=== PATIENT | female | born 1960 | race Caucasian/White ===

== ENCOUNTER 2020-01-17 09:38 | Outpatient (CLI) | payer OTHER, SELFPAY ==
[2020-01-19 14:14] LABS: Coronavirus Lab Test PTC Positive
== END 2020-01-17 09:39 | disposition home or self-care (01) ==
PROVIDERS: PCP Family Medicine; Visit Provider Family Medicine
DX: Z01.818 Encounter for other preprocedural examination (principal)
CPT/HCPCS: 87635

== ENCOUNTER 2020-01-23 22:09 | Inpatient (IN) | payer OTHER, SELFPAY ==
[2020-01-23 22:10] VITALS: BP 157/110; PULSE 75; RESP 26; TEMP 36.8; O2SAT 96; BMI 43.0
--- NOTE | 2020-01-23 22:18 | ECG_ITS ---
[facility] Test Date: 2020-01-23 Pat Name: Izzy Gonzalez Department: Room: Gender: Female Sponsorship Manager: : 1960 Requested By: Patria Kimbrough Order Number: [id number] Kimberly MD: Halley Lombardi M.D. Measurements Intervals [place] Rate: 75 P: 25 WV: 140 QRS: -15 QRSD: 110 T: 35 QT: 407 QTc: 457 Interpretive Statements SINUS RHYTHM WITH MARKED SINUS ARRHYTHMIA VOLTAGE CRITERIA FOR LVH [MEETS CRITERIA IN ONE OF: R(aVL), S(V1), R(V5), R(V5/V6)+S(V1)] NONSPECIFIC T-WAVE ABNORMALITY No previous ECG available for comparison Electronically Signed On 01-24-2020 17:57:05 CDT by Halley Lombardi M.D. [id number] f
--- NOTE | 2020-01-23 22:18 | XRR_ITS ---
PROCEDURE INFORMATION: Exam: XR Chest, 1 View Exam date and time: 01/23/2020 11:17 PM Age: 59 years old Clinical indication: Cough and shortness of breath; Patient HX: Covid, SOB, cough, cp TECHNIQUE: Imaging protocol: XR of the chest Views: 1 view. COMPARISON: No relevant prior studies available. FINDINGS: Lungs: Shallow inspiration with crowding. Patchy ground-glass opacities in the left lung base and mid lung. The right lung is clear. Pleural space: Unremarkable. No pleural effusion. No pneumothorax. Heart/Mediastinum: The heart size is upper normal. Bones/joints: Unremarkable. XR/XR chest 1V portable [id number] IMPRESSION: Ground-glass opacities in the left lung could represent pneumonia versus asymmetric pulmonary edema.
--- NOTE | 2020-01-23 22:35 | ED_ITS ---
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 Sunday morning she developed sore throat and cough and then a fever over 102. She had a COVID test done and the result was back on Sunday showing that she was positive for COVID infection. She is continued to run fevers since then. She is had body aches, cough, nausea, weakness. She had a home pulse ox and noted that her pulse oxes were in the 70s today. She does not have any history of lung disease or diabetes. She is not a smoker. She does have a history of hypertension and obesity. She called EMS tonight to bring her in because of her low sats and shortness of breath. On 4 L of oxygen she is 95%. On room air she was 87%. MD elicited complaint: shortness of breath and cough Onset (ago): day(s) (7) Severity: moderate Exacerbating factors: exertion Relieving factors: oxygen Associated symptoms: Reports cough, fever(s), myalgias and nausea; Deny chest pain Treatment prior to arrival: oxygen Review of Systems General: Reports: 10 or more systems reviewed and unremarkable except in HPI and below Const: Reports: fever(s) Eyes: Denies: change in vision ENMT: Denies: odynophagia Card: Denies: chest pain or swelling of feet/ankles Resp: Reports: dyspnea and non-productive cough; Denies: productive cough GI: Reports: nausea : Denies: flank pain or difficulty voiding Musc: Denies: neck pain or back pain Skin/Breast: Denies: rash Neuro: Denies: headache(s), numbness in extremities or weakness in extremities Vicente/Lymph: Denies: easy bruising or easy bleeding PFSH ED PFSH: Medical History (Updated 01/24/20 @ 11:54 by Noni Lorenzo MD) Anxiety Chronic back pain Hypertension Obesity Surgical History (Updated 01/24/20 @ 00:18 by Trevor Albarran MD) History of section Family History (Updated 01/24/20 @ 00:18 by Trevor Albarran MD) Father Oral cancer Mother Diabetes Other CAD (coronary artery disease) Social History (Updated 01/24/20 @ 00:19 by Trevor Albarran MD) Smoking and tobacco status: never smoked Alcohol intake: current Alcohol intake frequency: few times a week Substance/Drug Use: never Physical Exam Const: COMMON NORMALS: no acute distress, patient oriented x3, no limitations and alert GENERAL APPEARANCE: cooperative and comfortable HENMT: HEAD & SCALP: normal to inspection FACE & SINUS: normal facial exam Eye: GENERAL EYE: appearance normal, both eyes and all related structures Neck/C-Spine: COMMON NORMALS: supple, no meningeal signs and no JVD Chest: COMMONS NORMALS: normal inspection of the chest Resp: EFFORT & INSPECTION: Yes tachypneic, Yes labored and Yes uses accessory muscles AUSCULTATION: crackles Laterality: bilateral Cardio: COMMON NORMALS: no JVD, regular rate, regular rhythm and No murmurs present (Cardio) RATE: regular rate RHYTHM: regular rhythm GI: COMMON NORMALS: Normal to inspection, nondistended, normoactive bowel sounds present, Soft to palpation and non-tender INSPECTION: Yes normal to inspection AUSCULTATION: Yes normoactive bowel sounds PALPATION: Yes Soft to palpation Back/Pelvis: COMMON NORMALS: thoracic and lumbar spine normal to inspection Extremity: COMMON NORMALS: normal to inspection Neuro: COMMON NORMALS: patient oriented x3, moves all extremities, no focal motor deficits and no sensory deficits noted SENSORIUM/ORIENTATION: Yes alert MENINGEAL SIGNS: Yes no meningeal signs Psych: COMMON NORMALS: mental status grossly normal, cooperative and normal affect Skin: COMMON NORMALS: no rashes or lesions noted and turgor normal GENERAL SKIN EXAM: no rashes or lesions noted and turgor normal Course ED course: 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 She is hypoxic on room air and will be admitted to the viral ICU for further care including Decadron, Lovenox, remdesivir. Vital Signs: Vital signs: Vital Signs Temperature 98.0 F 01/25/20 08:00 Pulse Rate 65 01/25/20 10:00 Respiratory Rate 18 01/25/20 10:00 Blood Pressure 119/65 01/25/20 10:00 Pulse Oximetry 91 01/25/20 10:00 MDM - SOB/Dyspnea Lab Data: Labs: Lab Results 01/23/20 01/23/2020 Range/Units 22:40 22:40 22:40 WBC 1.5 L (4.0-10.0) 10^3/ uL RBC 4.91 (4.1-5.3) 10^6/u L Hgb 15.0 (11.5-15.3) g/dL Hct 44.9 (37.0-47.0) % MCV 91.4 (81-99) fL MCH 30.5 (28.0-34.0) pg MCHC 33.4 (30.0-36.0) g/dL RDW 12.8 (12.1-15.1) % Plt Count 269 (130-400) 10^3/c mm MPV 10.6 H (7.4-10.4) fL Neut % (Auto) 63.4 % Lymph % (Auto) 28.1 % Terrell % (Auto) 7.8 % Eos % (Auto) 0.0 % Baso % (Auto) 0.7 % Neut # (Auto) 0.97 L* (1.8-7.7) 10^3/u L Lymph # (Auto) 0.4 L (0.8-4.8) 10^3/u L Terrell # (Auto) 0.1 L (0.2-0.9) 10^3/u L Eos # (Auto) 0.0 (0.0-0.8) 10^3/u L Baso # (Auto) 0.0 (0.0-0.1) 10^3/u L Nucleated RBC % (a uto) 0 % Nucleated RBCs # 0.0 /100WBC PT 13.70 (12.1-14.9) SECO NDS INR 1.02 (0.8-1.2) Fibrinogen 656 H (174-498) mg/dL D-Dimer 0.96 H (0-0.59) ug/mIFE U Sodium 135 L (136-145) mmol/L Potassium 3.3 L (3.5-5.1) mmol/L Chloride 93 L (98-107) mmol/L Carbon Dioxide 28 (22-29) mmol/L Anion Gap 17.3 (5-19) BUN 14 (6-20) mg/dL Creatinine 0.8 (0.5-0.9) mg/dL GFR Calculation 73.7 L (90-130) mL/min Glucose 127 H (65-115) mg/dL Calculated Osmolal ity 282 L (285-295) mOsm/k g Lactic Acid (0.5-2.2) mmol/L Calcium 9.3 (8.5-10.5) mg/dL Magnesium 2.1 (1.7-2.3) mg/dL Ferritin 545 H (15-150) ng/mL Total Bilirubin 0.5 (0.15-1.2) mg/dL AST 92 H (0-32) U/L ALT 22 (0-33) U/L Alkaline Phosphata se 111 H (35-105) IU/L Lactate Dehydrogen ase 522 H (135-214) U/L C-Reactive Protein 76.3 H (0.0-4.9) mg/L NT-Pro-B Natriuret Pep 344 H (0-125) pg/mL Total Protein 8.2 (6.6-8.7) g/dL Albumin 3.9 (3.5-5.2) g/dL Globulin 4.3 (1.3-4.6) g/dL Procalcitonin 0.23 (0-0.5) ng/mL 01/23/20 Range/Units 22:40 WBC (4.0-10.0) 10^3/ uL RBC (4.1-5.3) 10^6/u L Hgb (11.5-15.3) g/dL Hct (37.0-47.0) % MCV (81-99) fL MCH (28.0-34.0) pg MCHC (30.0-36.0) g/dL RDW (12.1-15.1) % Plt Count (130-400) 10^3/c mm MPV (7.4-10.4) fL Neut % (Auto) % Lymph % (Auto) % Terrell % (Auto) % Eos % (Auto) % Baso % (Auto) % Neut # (Auto) (1.8-7.7) 10^3/u L Lymph # (Auto) (0.8-4.8) 10^3/u L Terrell # (Auto) (0.2-0.9) 10^3/u L Eos # (Auto) (0.0-0.8) 10^3/u L Baso # (Auto) (0.0-0.1) 10^3/u L Nucleated RBC % (a uto) % Nucleated RBCs # /100WBC PT (12.1-14.9) SECO NDS INR (0.8-1.2) Fibrinogen (174-498) mg/dL D-Dimer (0-0.59) ug/mIFE U Sodium (136-145) mmol/L Potassium (3.5-5.1) mmol/L Chloride (98-107) mmol/L Carbon Dioxide (22-29) mmol/L Anion Gap (5-19) BUN (6-20) mg/dL Creatinine (0.5-0.9) mg/dL GFR Calculation (90-130) mL/min Glucose (65-115) mg/dL Calculated Osmolal ity (285-295) mOsm/k g Lactic Acid 1.1 (0.5-2.2) mmol/L Calcium (8.5-10.5) mg/dL Magnesium (1.7-2.3) mg/dL Ferritin (15-150) ng/mL Total Bilirubin (0.15-1.2) mg/dL AST (0-32) U/L ALT (0-33) U/L Alkaline Phosphata se (35-105) IU/L Lactate Dehydrogen ase (135-214) U/L C-Reactive Protein (0.0-4.9) mg/L NT-Pro-B Natriuret Pep (0-125) pg/mL Total Protein (6.6-8.7) g/dL Albumin (3.5-5.2) g/dL Globulin (1.3-4.6) g/dL Procalcitonin (0-0.5) ng/mL Discharge Plan Discharge Patient Disposition: Admitted As Inpatient Admit Provider: Trevor Albarran Clinical Impression: COVID-19 Neutropenia Qualifiers: Neutropenia type: unspecified Qualified Code(s): D70.9 - Neutropenia, unspecified Condition: Stable Referrals: Francisca Rivera DO [Primary Care Provider] - Discharge Date/Time: 01/24/20 01:33 Coding Level of Care Code ED Industrial Training Specialist for g Fwd Exam Comprehensive
[2020-01-23 22:52] LABS: Basophils % 0.7 %; Hematocrit 44.9 % (37.0-47.0); Lymphocytes # 0.4 10^3/uL (0.8-4.8); Lymphocytes % 28.1 %; Mean Corpuscular HGB Conc 33.4 g/dL (30.0-36.0); Mean Corpuscular Hemoglobin 30.5 pg (28.0-34.0); Mean Corpuscular Volume 91.4 fL (81-99); Mean Platelet Volume 10.6 fL (7.4-10.4); Monocytes # 0.1 10^3/uL (0.2-0.9); Monocytes % 7.8 %; Neutrophils % 63.4 %; Nucleated Red Blood Cells % 0 %; Platelet Count 269 10^3/cmm (130-400); Red Blood Count 4.91 10^6/uL (4.1-5.3); Red Cell Distribution Width 12.8 % (12.1-15.1); White Blood Count 1.5 10^3/uL (4.0-10.0)
[2020-01-23 23:01] LABS: Neutrophils # 0.97 10^3/uL (1.8-7.7)
[2020-01-23 23:02] LABS: INR 1.02 (0.8-1.2)
[2020-01-23 23:04] LABS: Fibrinogen 656 mg/dL (174-498)
[2020-01-23] MEDS: dexamethasone 4 mg/mL INJ 6 MG IVP (23:06)
[2020-01-23 23:07] LABS: D Dimer 0.96 ug/mIFEU (0-0.59)
[2020-01-23 23:08] LABS: Lactic Sepsis W/Reflex 1.1 mmol/L (0.5-2.2)
[2020-01-23 23:17] VITALS: BP 177/99; PULSE 74; RESP 28; O2SAT 94
[2020-01-23 23:17] LABS: NT Pro B Type Natriuretic Pept 344 pg/mL (0-125); Procalcitonin 0.23 ng/mL (0-0.5)
[2020-01-23 23:28] LABS: Alanine Aminotransferase 22 U/L (0-33); Albumin Level 3.9 g/dL (3.5-5.2); Alkaline Phosphatase 111 IU/L (35-105); Blood Urea Nitrogen 14 mg/dL (6-20); C Reactive Protein 76.3 mg/L (0.0-4.9); Calcium 9.3 mg/dL (8.5-10.5); Carbon Dioxide 28 mmol/L (22-29); Chloride 93 mmol/L (98-107); Ferritin 545 ng/mL (15-150); Globulin 4.3 g/dL (1.3-4.6); Glomerular Filtration Rate 73.7 mL/min (90-130); Glucose 127 mg/dL (65-115); Magnesium 2.1 mg/dL (1.7-2.3); Osmolality Calculated 282 mOsm/kg (285-295); Sodium 135 mmol/L (136-145); Total Bilirubin 0.5 mg/dL (0.15-1.2); Total Protein 8.2 g/dL (6.6-8.7)
[2020-01-23 23:30] LABS: Anion Gap 17.3 (5-19); Aspartate Amino Transferase 92 U/L (0-32)
[2020-01-23 23:31] LABS: Lactate Dehydrogenase 522 U/L (135-214); Potassium 3.3 mmol/L (3.5-5.1)
[2020-01-23] MEDS: enoxaparin 120 mg/0.8 mL Syringe SUBCUT (23:36)
--- NOTE | 2020-01-23 23:41 | CTR_ITS ---
PROCEDURE INFORMATION: Exam: CT Angiography Chest With Contrast Exam date and time: 01/23/2020 11:53 PM Age: 59 years old Clinical indication: Cough and fever and shortness of breath; Chest pain; Patient HX: Covid+; Additional info: Covid pna, R/O pe TECHNIQUE: Imaging protocol: Computed tomographic angiography of the chest with intravenous contrast. 3D rendering (Not supervised by radiologist): MIP and/or 3D reconstructed images were created by the technologist. Radiation optimization: All CT scans at this facility use at least one of these dose optimization techniques: automated exposure control; mA and/or kV adjustment per patient size (includes targeted exams where dose is matched to clinical indication); or iterative reconstruction. Contrast material: OMNI 350; Contrast volume: 95 ml; Contrast route: INTRAVENOUS (IV); COMPARISON: CR XR chest 1V portable [id number] 01/23/2020 11:04 PM RADIATION DOSE METRICS: Total DLP (mGy-cm): 661.6 FINDINGS: Pulmonary arteries: The pulmonary arteries are adequately opacified for evaluation to the subsegmental level. There is no filling defect to suggest embolism. Aorta: The aorta is unremarkable. There is no aneurysm. Lungs: There is moderate severity bilateral lung disease characterized by patchy areas of coarse reticular and ground-glass opacity. Pleural space: Unremarkable. No pneumothorax. No pleural effusion. Heart: The heart is unremarkable. There is no pericardial effusion. Lymph nodes: There is no mediastinal or hilar lymphadenopathy. Bones/joints: Bones are unremarkable. Soft tissues: The extrathoracic soft tissues are unremarkable. Other findings: Visible structures in the upper abdomen are unremarkable. CT/CT angio chest PE protcl [id number] IMPRESSION: 1. No pulmonary embolism. 2. Moderate severity bilateral lung disease. Commonly reported imaging features of COVID-19 pneumonia are present. Other processes such as influenza pneumonia and organizing pneumonia (as can be seen with drug toxicity and connective tissue disease), can produce a similar imaging pattern. Radiation Dose CTDIVOL = (mGy): DLP = 661.6 (mGy-cm)
[2020-01-24] VITALS (253 sets, daily range): BP systolic 115–160; BP diastolic 78–103; PULSE 57–130; RESP 0–38; TEMP 36.8–37.1; O2SAT 77–99
--- NOTE | 2020-01-24 00:13 | PM.HP ---
Providers/Chief Complaint Admitting Physician: Trevor Albarran MD Primary Care Provider: Francisca Rivera DO Chief Complaint: hypoxia History of Present Illness Izzy Gonzalez is a 59 year old female with a past medical history of hypertension, obesity, chronic back pain, anxiety who presents to [facility] due to complaints of shortness of breath, fatigue, malaise, fevers, hypoxia. Patient tells me that she had a fever last Sunday, was tested for COVID-19 and tested positive. Over the the week, she has had low-grade fevers, fatigue, malaise, shortness of breath with exertion, nonproductive cough. She states that her symptoms are waxing and waning, at one point she was feeling better. But towards the latter part of the week her symptoms returned, and this evening she noticed that she was becoming hypoxic, her pulse ox after taking a shower was low reading in the low 70s, she was feeling short of breath so she called the EMS. Patient denies any cardiac history. Patient denies is any lung history, no COPD, no history of smoking. No history of strokes. No joint aches or pains. No diarrhea. Does have loss of taste sensation. No bilateral lower extremity edema. Review of Systems Const: Reports: fever(s), chills and malaise; Denies: fatigue Eyes: Denies: change in vision or blurry vision ENMT: Denies: nasal congestion Resp: Reports: dyspnea and non-productive cough; Denies: productive cough or wheezing GI: Denies: abdominal pain, nausea, vomiting, hematemesis, diarrhea, constipation, hematochezia or melena : Denies: flank pain, dysuria or urinary frequency Musc: Denies: neck pain or back pain Skin/Breast: Denies: rash Neuro: Denies: headache(s), dizziness or vertigo Psych: Denies: anxiety or depression Endo: Denies: polyuria or polydipsia Medications/Allergies Additional Medication Information Lopressor 50 twice daily Cymbalta 120 mg once daily Xanax 2.5 mg 3 times daily as needed [place] 5/325 every 6 hours as needed PFSH Acute PFSH: Medical History (Updated 01/24/20 @ 00:18 by Trevor Albarran MD) Anxiety Chronic back pain Hypertension Obesity Surgical History (Updated 01/24/20 @ 00:18 by Trevor Albarran MD) History of section Family History (Updated 01/24/20 @ 00:18 by Trevor Albarran MD) Father Oral cancer Mother Diabetes Other CAD (coronary artery disease) Social History (Updated 01/24/20 @ 00:19 by Trevor Albarran MD) Smoking and tobacco status: never smoked Alcohol intake: current Alcohol intake frequency: few times a week Substance/Drug Use: never Vitals/I&O/Wt Last Vital Signs Temp 98.2 F 01/23/20 22:10 Pulse 74 01/23/20 23:17 Resp 28 H 01/23/20 23:17 BP 177/99 01/23/20 23:17 Pulse Ox 94 01/23/20 23:17 Weight last 48 hrs Weight 124.738 kg Physical Exam Const: COMMON NORMALS: no acute distress and patient oriented x3 GENERAL APPEARANCE: cooperative and comfortable HENMT: COMMON NORMALS: normocephalic HEAD & SCALP: normocephalic Eye: COMMON NORMALS: Equal, round and reactive pupils present and EOMs intact bilaterally PUPIL: Yes Equal, round and reactive pupils present DIRECT OPHTHALMOSCOPY: Yes no papilledema Neck/C-Spine: COMMON NORMALS: full ROM, no lymphadenopathy, no JVD and Thyroid normal THYROID: Thyroid normal Lymph: LYMPHATIC: no lymphadenopathy noted Resp: COMMON NORMALS: normal respiratory effort, No retractions, No use of accessory muscles and clear to auscultation bilaterally AUSCULTATION: wheezes expiratory wheezes Cardio: COMMON NORMALS: no JVD, regular rate, regular rhythm, S1 normal heart sound present, S2 normal heart sound present, No gallops present (Cardio), No clicks present (Cardio) and No murmurs present (Cardio) RATE: regular rate RHYTHM: regular rhythm HEART SOUNDS: S1 normal heart sound present and S2 normal heart sound present GI: COMMON NORMALS: Normal to inspection, nondistended, normoactive bowel sounds present, Soft to palpation, non-tender and No hepatosplenomegaly present PALPATION: Yes Soft to palpation and Yes No hepatosplenomegaly present Extremity: COMMON NORMALS: normal to inspection, full ROM and no pedal edema Neuro: COMMON NORMALS: patient oriented x3, CN's II-XII intact bilaterally, moves all extremities and no focal motor deficits Psych: COMMON NORMALS: mental status grossly normal, Normal thought process present and cooperative THOUGHT PROCESS: Normal thought process present Data : 01/23/20 22:40 01/23/20 22:40 A&P Assessment and plan (1) Acute and chronic respiratory failure with hypoxia: -Secondary to COVID-19, left lower lobe pneumonia -Requiring 2 L nasal cannula, with neutropenia, transaminitis Plan: -Admit to viral ICU -Lovenox for DVT prophylaxis -Patient is a full code, agrees for intubation mechanical ventilation if her respiratory failure worsens -Decadron 6 mg daily until discharge -remdesvir for 5 days -Rocephin and azithromycin -Sputum cultures, blood cultures -Albuterol, Advair -Monitor QT interval daily -Telemetry monitoring -Monitor respiratory status closely -COVID-19 precautions Status: Acute (2) Hypokalemia: Status: Acute (3) Transaminitis: Status: Acute (4) Chronic back pain: Status: Acute (5) Anxiety: Status: Acute (6) Pneumonia due to COVID-19 virus: Status: Acute (7) Viral pneumonitis: Status: Acute (8) Obesity: Status: Acute (9) Neutropenia: Status: Acute Qualifiers: Neutropenia type: unspecified Qualified Code(s): D70.9 - Neutropenia, unspecified (10) Hypertension: Status: Acute Attestations Medical Necessity Statement*: Patient requires hospitalization, inpatient, greater than 2 midnights for acute respiratory failure secondary to COVID-19 Coding Level of Care Code Acute [employer] Specialist for [facility] Raimundo Diagnoses Acute and chronic respiratory failure with hypoxia J96.21 Hypokalemia E87.6 Transaminitis R74.01 Chronic back pain M54.9; G89.29 Anxiety F41.9 Pneumonia due to COVID-19 virus U07.1; J12.89 Viral pneumonitis J12.9 Obesity E66.9 Neutropenia D70.9 Neutropenia type: unspecified Hypertension I10
[2020-01-24] MEDS: potassium chloride ER 10 mEq Tablet 40 MEQ PO (02:52)
[2020-01-24] MEDS: cefTRIAXone 1,000 MG in sodium chloride 0.9% (plus) 50 ML 100 MG IV (02:54)
[2020-01-24] MEDS: azithromycin 500 MG in sodium chloride 0.9% 250 ML 250 MG IV (02:55)
[2020-01-24] MEDS: HYDROcodone-acetaminophen 10-325 mg Tablet 1 TAB PO ×2 (03:13→21:27)
[2020-01-24] MEDS: ALPRAZolam 0.5 mg Tablet PO (03:33)
[2020-01-24 04:10] LABS: Chol HDL Ratio 3.38 mg/dL (0.0-4.40); Cholesterol 98 mg/dL (0-200); HDL Cholesterol 29 mg/dL (60-100); LDL Cholesterol Calculated 45 mg/dL (50-129); LDL HDL Ratio 1.55 RATIO (0.00-3.22); Triglycerides 122 mg/dL (0-150)
[2020-01-24 04:20] LABS: Thyroid Stimulating Hormone 0.56 uIU/mL (0.27-4.20)
[2020-01-24 06:33] LABS: Estmated Average Glucose 120; Hemoglobin A1C 5.8 % (4.0-6.0)
[2020-01-24] MEDS: albuterol 8 gm MDI 1 PUFF INHALATION ×5 (08:00→19:45)
[2020-01-24] MEDS: metoprolol tartrate 50 mg Tablet PO ×2 (08:35→18:15)
[2020-01-24] MEDS: dexamethasone 4 mg/mL INJ 6 MG IVP (08:35)
[2020-01-24] MEDS: duloxetine 60 mg Capsule 120 MG PO (09:14)
--- NOTE | 2020-01-24 10:00 | ECG_ITS ---
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 Measurements Intervals [place] Rate: 68 P: 24 ND: 151 QRS: -43 QRSD: 107 T: 89 QT: 428 QTc: 456 Interpretive Statements SINUS RHYTHM MARKED LEFT AXIS DEVIATION [QRS AXIS < -30] VOLTAGE CRITERIA FOR LVH [MEETS CRITERIA IN ONE OF: R(aVL), S(V1), R(V5), R(V5/V6)+S(V1)] Compared to ECG 01/23/2020 22:18:48 Left-axis deviation now present Sinus arrhythmia no longer present T-wave abnormality no longer present Electronically Signed On 01-24-2020 18:06:20 CDT by Halley Lombardi M.D. [id number]
--- NOTE | 2020-01-24 11:49 | PM.PN ---
Subjective Subjective: Interval history: Chart reviewed, hypoxic this morning with increasing oxygen requirement, otherwise hemodynamically stable and afebrile. Noted elevated inflammatory markers mild leukopenia. On day 2 of Remdesevir. Medications: Reviewed: Yes Medication Review Details: Active Medications Generic Name Dose Route Start Last Admin Trade Name Freq PRN Reason Stop Dose Admin Hydrocodone Bitart /Acetaminophen 1 tab 01/24/20 01:29 01/24/20 03:13 [place] 10-325 Mg PO 1 tab Q6H PRN Administration back pain Albuterol Sulfate 1 puff 01/24/20 04:00 01/24/20 08:00 Ventolin INHALATION 1 puff Q4H.RESPIRATORY S CH Administration Alprazolam 0.5 mg 01/24/20 01:29 01/24/20 03:33 Xanax PO 0.5 mg Q8H PRN Administration anxiety Ascorbic Acid 500 mg 01/24/20 18:00 Vitamin C PO BID ROSCOE Benzonatate 100 mg 01/24/20 11:47 Tessalon Pearls PO TID PRN COUGH Dexamethasone 6 mg 01/24/20 09:00 01/24/20 08:35 Decadron IVP 6 mg Q24H ROSCOE Administration Duloxetine HCl 120 mg 01/24/20 09:00 01/24/20 09:14 Cymbalta PO 120 mg DAILY ROSCOE Administration Enoxaparin Sodium 40 mg 01/24/20 11:00 Lovenox SUBCUT Q24H ROSCOE Guaifenesin/Dextro methorphan 10 ml 01/24/20 11:47 Robitussin Dm Or al Liq PO Q4H PRN COUGH remdesivir (EUA) 1 00 mg/ 100 mls @ 100 mls /hr 01/24/20 23:15 Sodium Chloride IV 01/28/20 00:14 Q24H ROSCOE Ceftriaxone Sodium 1,000 mg/ 50 mls @ 100 mls/ hr 01/24/20 02:00 01/24/20 02:54 Sodium Chloride IV 100 mls/hr Q24H ROSCOE Administration Protocol Azithromycin 500 m g/ Sodium 250 mls @ 250 mls /hr 01/24/20 02:00 01/24/20 02:55 Chloride IV 250 mls/hr Q24H ROSCOE Administration Protocol Metoprolol Tartrat e 50 mg 01/24/20 09:00 01/24/20 08:35 Lopressor PO 50 mg BID ROSCOE Administration Ondansetron HCl 4 mg 01/24/20 01:29 Zofran IVP Q8H PRN vomiting, or N/V if npo Fluticasone/Salmet sandra 1 puff 01/24/20 08:00 01/24/20 08:00 Advair Diskus 10 0-50 INHALATION 1 puff BID.RESPIRATORY S CH Administration Zinc Gluconate 50 mg 01/24/20 12:00 Zinc Gluconate PO DAILY ROSCOE pseudoephedrine [From Sudafed] Allergy (Verified 01/24/20 02:37) ADR-Migraine Vitals/I&O/Wt Last Vital Signs Temp 98.8 F 01/24/20 09:10 Pulse 70 01/24/20 09:10 Resp 17 01/24/20 09:10 BP 151/99 01/24/20 09:10 Pulse Ox 89 L 01/24/20 09:10 01/23/20 01/24/20 01/24/20 22:59 06:59 14:59 Intake Total 300 / 300 Balance 300 / 300 Weight last 48 hrs Weight 124.738 kg Physical Exam Const: COMMON NORMALS: no acute distress, patient oriented x3 and alert GENERAL APPEARANCE: cooperative and comfortable NUTRITIONAL APPEARANCE: obese morbidly obese ORIENTATION/CONSCIOUSNESS: Yes awake HENMT: COMMON NORMALS: normocephalic, atraumatic, hearing grossly normal bilaterally and moist oral mucous membranes HEAD & SCALP: normocephalic and atraumatic Eye: COMMON NORMALS: Equal, round and reactive pupils present, EOMs intact bilaterally and conjunctivae normal CONJUNCTIVA: Yes conjunctivae normal PUPIL: Yes Equal, round and reactive pupils present Neck/C-Spine: COMMON NORMALS: full ROM GENERAL: Yes normal visual inspection and Yes trachea midline Resp: COMMON NORMALS: normal respiratory effort, No retractions and No use of accessory muscles EFFORT & INSPECTION: Yes able to speak in complete sentences, Yes symmetric chest movement and No tachypneic AUSCULTATION: diminished lung sounds bilateral OTHER: -intermittently hypoxic, on 6 L NC Cardio: COMMON NORMALS: regular rate, regular rhythm, S1 normal heart sound present, S2 normal heart sound present and No murmurs present (Cardio) RATE: regular rate RHYTHM: regular rhythm HEART SOUNDS: S1 normal heart sound present and S2 normal heart sound present GI: COMMON NORMALS: Normal to inspection, nondistended, normoactive bowel sounds present, Soft to palpation and non-tender INSPECTION: Yes central obesity PALPATION: Yes Soft to palpation Extremity: COMMON NORMALS: normal to inspection, full ROM and no clubbing, cyanosis or edema; negative for no pedal edema Neuro: COMMON NORMALS: patient oriented x3, moves all extremities, no focal motor deficits, no sensory deficits noted and gait normal SENSORIUM/ORIENTATION: Yes alert Psych: COMMON NORMALS: mental status grossly normal, Normal thought process present, cooperative, normal affect and speech normal SPEECH: Yes normal speech THOUGHT PROCESS: Normal thought process present Skin: COMMON NORMALS: no rashes or lesions noted, no jaundice, no petechiae and no mottling GENERAL SKIN EXAM: no rashes or lesions noted Data : 01/23/20 22:40 01/23/20 22:40 A&P Assessment and plan (1) Pneumonia due to COVID-19 virus: -Has been symptomatic for several days, tested positive on 01/16; 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 -Increasing oxygen requirement, continued close monitoring of respiratory status -Noted elevated inflammatory markers, trend daily -On day 2/5 of remdesevir due to need for supplemental oxygen support and severity of infection -Continue dexamethasone, add zinc and vitamin C -Continue inhaler treatments as needed, add antitussives -Afebrile, hemodynamically stable; continue to monitor vital signs closely -Telemetry monitoring -Order blood cultures, sputum cultures if able to provide sample -Isolation precautions -Continue empiric antibiotic coverage with ceftriaxone and azithromycin -lactic acid and pro-calcitonin wnl Status: Acute (2) COVID-19: -as noted above Status: Acute (3) Hypertension: -Continue to monitor vital signs -Continue oral antihypertensives Status: Chronic Qualifiers: Hypertension type: essential hypertension Qualified Code(s): I10 - Essential (primary) hypertension (4) Anxiety: -anxiolytics PRN Status: Acute (5) Hypokalemia: -replace as needed; Mg-2.1 -continue to monitor Status: Acute (6) Neutropenia: -likely secondary to infection -monitor labs Status: Acute Qualifiers: Neutropenia type: unspecified Qualified Code(s): D70.9 - Neutropenia, unspecified (7) Obesity: -Morbid obesity, BMI-43 kg/m2 Status: Chronic Qualifiers: Obesity type: due to excess calories Obesity classification: adult class 3 (BMI >= 40) Serious obesity comorbidity presence: with serious comorbidity Body mass index: BMI 40.0-44.9 Qualified Code(s): E66.01 - Morbid (severe) obesity due to excess calories; Z68.41 - Body mass index [BMI]40.0-44.9, adult Additional A&P Information -Chronic back pain; pain meds as needed -GI soft diet as tolerated -GI ppx with PPI -DVT ppx with lovenox -Dispo: home -Code status: FULL code Attestations Medical Necessity Statement*: Patient requires hospitalization for continued management of COVID-19 infection with associated pneumonia, noted increasing oxygen requirement, on antiviral and antibiotic treatment. Time Spent in Patient Care: Greater than 35 minutes (>than 50% of time spent in counselling and/or direct pt care on unit). Coding Level of Care Code Acute Internal Medicine Veterinary Technician for [facility] Fwd Diagnoses Pneumonia due to COVID-19 virus U07.1; J12.89 COVID-19 Hypertension I10 Hypertension type: essential hypertension Anxiety F41.9 Hypokalemia E87.6 Neutropenia D70.9 Neutropenia type: unspecified Obesity E66.01; Z68.41 Obesity type: due to excess calories Obesity classification: adult class 3 (BMI >= 40) Serious obesity comorbidity presence: with serious comorbidity Body mass index: BMI 40.0-44.9
[2020-01-24] MEDS: zinc gluconate 50 mg Tablet PO (12:43)
[2020-01-24] MEDS: enoxaparin 40 mg/0.4 mL Syringe SUBCUT (12:43)
[2020-01-24] MEDS: ALPRAZolam 0.25 mg Tablet 0.5 MG PO ×2 (13:25→21:28)
[2020-01-24 14:15] LABS: Influenza A by IFA Negative (Negative); Influenza B by IFA Negative (Negative)
[2020-01-24] MEDS: ascorbic acid 500 mg Tablet PO (18:15)
[2020-01-24] MEDS: ondansetron 2 mg/ML SDV 2 mL 4 MG IVP (18:29)
--- NOTE | 2020-01-24 18:45 | PC.NURSE ---
Received report on patient from Nena BROOKS. Assumed care at this time.
[2020-01-25] VITALS (74 sets, daily range): BP systolic 118–147; BP diastolic 65–92; PULSE 50–89; RESP 1–26; TEMP 36.6–36.9; O2SAT 86–99
[2020-01-25] MEDS: cefTRIAXone 1,000 MG in sodium chloride 0.9% (plus) 50 ML 100 MG IV (01:45)
[2020-01-25] MEDS: azithromycin 500 MG in sodium chloride 0.9% 250 ML 250 MG IV (02:15)
[2020-01-25] MEDS: albuterol 8 gm MDI 1 PUFF INHALATION ×5 (03:50→19:34)
[2020-01-25 06:22] LABS: Hematocrit 43.5 % (37.0-47.0); Hemoglobin 14.4 g/dL (11.5-15.3); Lymphocytes # 0.6 10^3/uL (0.8-4.8); Mean Corpuscular HGB Conc 33.1 g/dL (30.0-36.0); Mean Corpuscular Hemoglobin 30.3 pg (28.0-34.0); Mean Corpuscular Volume 91.6 fL (81-99); Monocytes # 0.3 10^3/uL (0.2-0.9); Monocytes % 7.1 %; Neutrophils # 2.93 10^3/uL (1.8-7.7); Neutrophils % 76.6 %; Nucleated Red Blood Cells % 0 %; Platelet Count 375 10^3/cmm (130-400); Red Blood Count 4.75 10^6/uL (4.1-5.3); Red Cell Distribution Width 12.8 % (12.1-15.1); White Blood Count 3.8 10^3/uL (4.0-10.0)
[2020-01-25 06:46] LABS: C Reactive Protein 35.2 mg/L (0.0-4.9); Creatine Phosphokinase 49 U/L (26-192)
[2020-01-25 07:27] LABS: Slide Review Slide Review Perform
[2020-01-25 07:33] LABS: Fibrinogen 532 mg/dL (174-498)
[2020-01-25 07:36] LABS: D Dimer 0.49 ug/mIFEU (0-0.59)
[2020-01-25 08:49] LABS: Alanine Aminotransferase 18 U/L (0-33); Albumin Level 3.7 g/dL (3.5-5.2); Alkaline Phosphatase 96 IU/L (35-105); Anion Gap 20.1 (5-19); Aspartate Amino Transferase 57 U/L (0-32); Blood Urea Nitrogen 20 mg/dL (6-20); Calcium 9.2 mg/dL (8.5-10.5); Carbon Dioxide 26 mmol/L (22-29); Chloride 95 mmol/L (98-107); Globulin 3.8 g/dL (1.3-4.6); Glomerular Filtration Rate 126.7 mL/min (90-130); Glucose 116 mg/dL (65-115); Magnesium 2.2 mg/dL (1.7-2.3); Osmolality Calculated 290 mOsm/kg (285-295); Phosphorus 3.5 mg/dL (2.5-4.5); Potassium 3.1 mmol/L (3.5-5.1); Sodium 138 mmol/L (136-145); Total Bilirubin 0.3 mg/dL (0.15-1.2); Total Protein 7.5 g/dL (6.6-8.7)
[2020-01-25 08:58] LABS: Ferritin 498 ng/mL (15-150); Lactate Dehydrogenase 353 U/L (135-214); NT Pro B Type Natriuretic Pept 507 pg/mL (0-125)
[2020-01-25] MEDS: duloxetine 60 mg Capsule 120 MG PO (09:16)
[2020-01-25] MEDS: zinc gluconate 50 mg Tablet PO (09:16)
[2020-01-25] MEDS: dexamethasone 4 mg/mL INJ 6 MG IVP (09:16)
[2020-01-25] MEDS: ascorbic acid 500 mg Tablet PO ×2 (09:17→17:14)
--- NOTE | 2020-01-25 10:00 | ECG_ITS ---
[facility] ED Test Date: 2020-01-25 Pat Name: Izzy Gonzalez Department: Room: ICU19 Gender: Female Disability Benefits Specialist: : 1960 Requested By: Trevor Albarran Order Number: [id number] Kimberly MD: Halley Lombardi M.D. Measurements Intervals [place] Rate: 64 P: 42 GA: 137 QRS: -9 QRSD: 100 T: 102 QT: 383 QTc: 397 Interpretive Statements SINUS RHYTHM WITH SINUS ARRHYTHMIA VOLTAGE CRITERIA FOR LVH [MEETS CRITERIA IN ONE OF: R(aVL), S(V1), R(V5), R(V5/V6)+S(V1)] NONSPECIFIC T-WAVE ABNORMALITY Compared to ECG 01/24/2020 10:28:41 T-wave abnormality now present Left-axis deviation no longer present Electronically Signed On 01-25-2020 18:24:02 CDT by Halley Lombardi M.D. [id number]
[2020-01-25] MEDS: metoprolol tartrate 50 mg Tablet PO (10:13)
[2020-01-25] MEDS: enoxaparin 40 mg/0.4 mL Syringe SUBCUT (10:13)
[2020-01-25] MEDS: HYDROcodone-acetaminophen 10-325 mg Tablet 1 TAB PO ×2 (13:04→21:04)
--- NOTE | 2020-01-25 14:00 | PM.PN ---
Subjective Subjective: Interval history: Oxygen requirements remains at 6 L nasal cannula, intermittent bradycardia, otherwise hemodynamically stable, afebrile. Down-trending inflammatory markers, on day 3 of remdesevir. We will to wean down her oxygen requirement to 4 L this afternoon. Reports feeling better though continues to be fatigued. Medications: Reviewed: Yes Medication Review Details: Active Medications Generic Name Dose Route Start Last Admin Trade Name Freq PRN Reason Stop Dose Admin Hydrocodone Bitart /Acetaminophen 1 tab 01/24/20 01:29 01/25/20 13:04 [place] 10-325 Mg PO 1 tab Q6H PRN Administration back pain Albuterol Sulfate 1 puff 01/24/20 04:00 01/25/20 11:40 Ventolin INHALATION 1 puff Q4H.RESPIRATORY S CH Administration Alprazolam 0.5 mg 01/24/20 12:49 01/24/20 21:28 Xanax PO 0.5 mg Q8H PRN Administration anxiety Ascorbic Acid 500 mg 01/24/20 18:00 01/25/20 09:17 Vitamin C PO 500 mg BID ROSCOE Administration Benzonatate 100 mg 01/24/20 11:47 Tessalon Pearls PO TID PRN COUGH Dexamethasone 6 mg 01/24/20 09:00 01/25/20 09:16 Decadron IVP 6 mg Q24H ROSCOE Administration Duloxetine HCl 120 mg 01/24/20 09:00 01/25/20 09:16 Cymbalta PO 120 mg DAILY ROSCOE Administration Enoxaparin Sodium 40 mg 01/24/20 11:00 01/25/20 10:13 Lovenox SUBCUT 40 mg Q24H ROSCOE Administration Guaifenesin/Dextro methorphan 10 ml 01/24/20 11:47 Robitussin Dm Or al Liq PO Q4H PRN COUGH remdesivir (EUA) 1 00 mg/ 100 mls @ 100 mls /hr 01/24/20 23:15 01/25/20 07:19 Sodium Chloride IV 01/28/20 00:14 Infused Q24H ROSCOE Infusion Ceftriaxone Sodium 1,000 mg/ 50 mls @ 100 mls/ hr 01/24/20 02:00 01/25/20 07:20 Sodium Chloride IV Infused Q24H ROSCOE Infusion Protocol Azithromycin 500 m g/ Sodium 250 mls @ 250 mls /hr 01/24/20 02:00 01/25/20 07:19 Chloride IV Infused Q24H ROSCOE Infusion Protocol Metoprolol Tartrat e 50 mg 01/24/20 09:00 01/25/20 10:13 Lopressor PO 50 mg BID ROSCOE Administration Ondansetron HCl 4 mg 01/24/20 01:29 01/24/20 18:29 Zofran IVP 4 mg Q8H PRN Administration vomiting, or N/V if npo Fluticasone/Salmet sandra 1 puff 01/24/20 08:00 01/25/20 07:58 Advair Diskus 10 0-50 INHALATION 1 puff BID.RESPIRATORY S CH Administration Zinc Gluconate 50 mg 01/24/20 12:00 01/25/20 09:16 Zinc Gluconate PO 50 mg DAILY ROSCOE Administration pseudoephedrine [From [employer]] Allergy (Verified 01/24/20 02:37) ADR-Migraine Vitals/I&O/Wt Last Vital Signs Temp 98.1 F 01/25/20 12:00 Pulse 58 L 01/25/20 12:00 Resp 16 01/25/20 12:00 BP 124/79 01/25/20 12:00 Pulse Ox 95 01/25/20 12:00 01/24/20 01/25/20 01/25/20 22:59 06:59 14:59 Intake Total 960 / 1560 660 / 2220 1000 / 1000 Output Total 475 / 475 Balance 960 / 1560 659 / 2219 525 / 525 Weight last 48 hrs Weight 124.738 kg Physical Exam Const: COMMON NORMALS: no acute distress, patient oriented x3 and alert GENERAL APPEARANCE: cooperative and comfortable NUTRITIONAL APPEARANCE: obese morbidly obese ORIENTATION/CONSCIOUSNESS: Yes awake HENMT: COMMON NORMALS: normocephalic, atraumatic, hearing grossly normal bilaterally and moist oral mucous membranes HEAD & SCALP: normocephalic and atraumatic Eye: COMMON NORMALS: Equal, round and reactive pupils present, EOMs intact bilaterally and conjunctivae normal CONJUNCTIVA: Yes conjunctivae normal PUPIL: Yes Equal, round and reactive pupils present Neck/C-Spine: COMMON NORMALS: full ROM GENERAL: Yes normal visual inspection and Yes trachea midline Resp: COMMON NORMALS: normal respiratory effort, No retractions and No use of accessory muscles EFFORT & INSPECTION: Yes able to speak in complete sentences, Yes symmetric chest movement and No tachypneic AUSCULTATION: diminished lung sounds bilateral OTHER: -intermittently hypoxic, on 6 L NC Cardio: COMMON NORMALS: regular rate, regular rhythm, S1 normal heart sound present, S2 normal heart sound present and No murmurs present (Cardio) RATE: regular rate RHYTHM: regular rhythm HEART SOUNDS: S1 normal heart sound present and S2 normal heart sound present GI: COMMON NORMALS: Normal to inspection, nondistended, normoactive bowel sounds present, Soft to palpation and non-tender INSPECTION: Yes central obesity PALPATION: Yes Soft to palpation Extremity: COMMON NORMALS: normal to inspection, full ROM and no clubbing, cyanosis or edema; negative for no pedal edema Neuro: COMMON NORMALS: patient oriented x3, moves all extremities, no focal motor deficits, no sensory deficits noted and gait normal SENSORIUM/ORIENTATION: Yes alert Psych: COMMON NORMALS: mental status grossly normal, Normal thought process present, cooperative, normal affect and speech normal SPEECH: Yes normal speech THOUGHT PROCESS: Normal thought process present Skin: COMMON NORMALS: no rashes or lesions noted, no jaundice, no petechiae and no mottling GENERAL SKIN EXAM: no rashes or lesions noted Data : 01/25/20 04:00 01/25/20 04:00 Micro: Microbiology 01/24/20 13:19 Blood Culture - Preliminary Blood NEGATIVE TO DATE 01/24/20 13:10 Blood Culture - Preliminary Blood NEGATIVE TO DATE 01/24/20 13:10 MRSA Culture - Final Nose A&P Assessment and plan (1) Pneumonia due to COVID-19 virus: -Has been symptomatic for several days, tested positive on 01/16; 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 -Increasing oxygen requirement, continued close monitoring of respiratory status -Noted elevated inflammatory markers, trend daily -On day 3/5 of remdesevir due to need for supplemental oxygen support and severity of infection -Continue dexamethasone, zinc and vitamin C -Continue inhaler treatments as needed, add antitussives -Afebrile, hemodynamically stable; continue to monitor vital signs closely -Telemetry monitoring -blood cultures prelim negative, sputum cultures if able to provide sample; MRSA negative -Isolation precautions -Continue empiric antibiotic coverage with ceftriaxone and azithromycin -lactic acid and pro-calcitonin wnl Status: Acute (2) COVID-19: -as noted above Status: Acute (3) Hypertension: -Continue to monitor vital signs -Continue oral antihypertensives Status: Chronic Qualifiers: Hypertension type: essential hypertension Qualified Code(s): I10 - Essential (primary) hypertension (4) Anxiety: -anxiolytics PRN Status: Acute (5) Hypokalemia: -replace as needed; Mg-2.1 -continue to monitor Status: Acute (6) Neutropenia: -likely secondary to infection -monitor labs Status: Acute Qualifiers: Neutropenia type: unspecified Qualified Code(s): D70.9 - Neutropenia, unspecified (7) Obesity: -Morbid obesity, BMI-43 kg/m2 Status: Chronic Qualifiers: Body mass index: BMI 40.0-44.9 Obesity classification: adult class 3 (BMI >= 40) Obesity type: due to excess calories Serious obesity comorbidity presence: with serious comorbidity Qualified Code(s): E66.01 - Morbid (severe) obesity due to excess calories; Z68.41 - Body mass index [BMI]40.0-44.9, adult Additional A&P Information -Chronic back pain; pain meds as needed -GI soft diet as tolerated -GI ppx with PPI -DVT ppx with lovenox -Dispo: home -Code status: FULL code Attestations Medical Necessity Statement*: Patient requires hospitalization for continued treatment of COVID-19 pneumonia, on continued high oxygen requirement, antiviral and antibiotic therapy. Time Spent in Patient Care: 16 - 35 minutes (>than 50% of time spent in counselling and/or direct pt care on unit). Coding Level of Care Code Acute Inventory Audit Clerk for [facility] Fwd Exam Comprehensive Diagnoses Pneumonia due to COVID-19 virus U07.1; J12.89 COVID-19 Hypertension I10 Hypertension type: essential hypertension Anxiety F41.9 Hypokalemia E87.6 Neutropenia D70.9 Neutropenia type: unspecified Obesity E66.01; Z68.41 Body mass index: BMI 40.0-44.9 Obesity classification: adult class 3 (BMI >= 40) Obesity type: due to excess calories Serious obesity comorbidity presence: with serious comorbidity
[2020-01-25] MEDS: potassium chloride ER 10 mEq Tablet 40 MEQ PO (14:36)
[2020-01-25] MEDS: ALPRAZolam 0.25 mg Tablet 0.5 MG PO (21:04)
[2020-01-26] VITALS (32 sets, daily range): BP systolic 115–147; BP diastolic 59–86; PULSE 56–81; RESP 10–23; TEMP 36.6–37.3; O2SAT 80–99
[2020-01-26] MEDS: cefTRIAXone 1,000 MG in sodium chloride 0.9% (plus) 50 ML 100 MG IV (02:08)
[2020-01-26] MEDS: azithromycin 500 MG in sodium chloride 0.9% 250 ML 250 MG IV (02:42)
[2020-01-26] MEDS: albuterol 8 gm MDI 1 PUFF INHALATION ×4 (05:03→19:33)
[2020-01-26 06:25] LABS: Hematocrit 41.8 % (37.0-47.0); Hemoglobin 13.8 g/dL (11.5-15.3); Lymphocytes # 0.8 10^3/uL (0.8-4.8); Lymphocytes % 17.1 %; Mean Corpuscular Hemoglobin 30.7 pg (28.0-34.0); Mean Corpuscular Volume 92.9 fL (81-99); Mean Platelet Volume 9.6 fL (7.4-10.4); Monocytes # 0.3 10^3/uL (0.2-0.9); Monocytes % 6.8 %; Neutrophils # 3.32 10^3/uL (1.8-7.7); Neutrophils % 75.9 %; Nucleated Red Blood Cells % 0 %; Platelet Count 385 10^3/cmm (130-400); Red Cell Distribution Width 12.8 % (12.1-15.1); White Blood Count 4.4 10^3/uL (4.0-10.0)
[2020-01-26 06:46] LABS: Alanine Aminotransferase 17 U/L (0-33); Albumin Level 3.7 g/dL (3.5-5.2); Alkaline Phosphatase 87 IU/L (35-105); Anion Gap 14.7 (5-19); Aspartate Amino Transferase 47 U/L (0-32); Blood Urea Nitrogen 19 mg/dL (6-20); Calcium 8.8 mg/dL (8.5-10.5); Carbon Dioxide 28 mmol/L (22-29); Chloride 99 mmol/L (98-107); Glomerular Filtration Rate 126.7 mL/min (90-130); Glucose 130 mg/dL (65-115); Magnesium 2.1 mg/dL (1.7-2.3); Osmolality Calculated 290 mOsm/kg (285-295); Phosphorus 3.3 mg/dL (2.5-4.5); Potassium 3.7 mmol/L (3.5-5.1); Sodium 138 mmol/L (136-145); Total Bilirubin 0.2 mg/dL (0.15-1.2); Total Protein 6.7 g/dL (6.6-8.7)
[2020-01-26 06:58] LABS: Ferritin 362 ng/mL (15-150); Lactate Dehydrogenase 346 U/L (135-214); NT Pro B Type Natriuretic Pept 248 pg/mL (0-125)
[2020-01-26 08:33] LABS: Fibrinogen 498 mg/dL (174-498)
[2020-01-26] MEDS: potassium chloride ER 10 mEq Tablet 40 MEQ PO (09:49)
[2020-01-26] MEDS: zinc gluconate 50 mg Tablet PO (09:49)
[2020-01-26] MEDS: metoprolol tartrate 50 mg Tablet PO ×2 (09:49→17:16)
[2020-01-26] MEDS: enoxaparin 40 mg/0.4 mL Syringe SUBCUT (09:50)
[2020-01-26] MEDS: ascorbic acid 500 mg Tablet PO ×2 (09:50→17:16)
[2020-01-26] MEDS: dexamethasone 4 mg/mL INJ 6 MG IVP (09:50)
[2020-01-26] MEDS: duloxetine 60 mg Capsule 120 MG PO (09:50)
--- NOTE | 2020-01-26 10:00 | ECG_ITS ---
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 Measurements Intervals [place] Rate: 65 P: 46 MT: 141 QRS: -9 QRSD: 102 T: 28 QT: 428 QTc: 446 Interpretive Statements SINUS RHYTHM WITH OCCASIONAL SUPRAVENTRICULAR PREMATURE COMPLEXES MODERATE VOLTAGE CRITERIA FOR LVH, CONSIDER NORMAL VARIANT [MEETS CRITERIA IN ONE OF: R(aVL), S(V1), R(V5), R(V5/V6)+S(V1)] NONSPECIFIC T-WAVE ABNORMALITY Compared to ECG 01/25/2020 09:59:59 Sinus arrhythmia no longer present T-wave abnormality still present Electronically Signed On 01-26-2020 20:29:31 CDT by Halley Lombardi M.D. [id number]
[2020-01-26] MEDS: HYDROcodone-acetaminophen 10-325 mg Tablet 1 TAB PO ×2 (13:42→22:57)
--- NOTE | 2020-01-26 17:03 | PM.PN ---
Subjective Subjective: Interval history: Izzy reports she feels better than she did. Less short of breath. Requiring less oxygen. Medications: Reviewed: Yes Vitals/I&O/Wt Last Vital Signs Temp 99.0 F 01/26/20 16:00 Pulse 66 01/26/20 16:00 Resp 16 01/26/20 16:00 BP 130/66 01/26/20 16:00 Pulse Ox 94 01/26/20 16:00 01/26/20 01/26/20 01/26/20 06:59 14:59 22:59 Intake Total 400 / 1890 490 / 490 Balance 400 / 1415 490 / 490 Physical Exam Narrative: EXAM NARRATIVE: General exam no apparent distress Cardiovascular regular rate and rhythm without murmur Lungs clear no wheezing or crackles Abdomen is soft, positive bowel sounds Extremities no cyanosis clubbing or edema Data : 01/26/20 05:45 01/26/20 05:45 Micro: Microbiology 01/24/20 13:19 Blood Culture - Preliminary Blood NEGATIVE TO DATE 01/24/20 13:10 Blood Culture - Preliminary Blood NEGATIVE TO DATE A&P Assessment and plan (1) Pneumonia due to COVID-19 virus: Positive test on January 16 CTA demonstrated no pulmonary embolism Now having decreasing oxygen requirement Continue antiviral, dexamethasone currently Overall appears to be improving Fourth day of remdesivir today Empiric antibiotics of ceftriaxone and azithromycin were initiated on admission Status: Acute (2) COVID-19: -as noted above Status: Acute (3) Hypertension: Continue present medications Status: Chronic Qualifiers: Hypertension type: essential hypertension Qualified Code(s): I10 - Essential (primary) hypertension (4) Anxiety: Xanax as needed Status: Acute (5) Hypokalemia: Supplemented and normal today Status: Acute (6) Neutropenia: Resolved Status: Acute Qualifiers: Neutropenia type: unspecified Qualified Code(s): D70.9 - Neutropenia, unspecified (7) Obesity: -Morbid obesity, BMI-43 kg/m2 Status: Chronic Qualifiers: Obesity type: due to excess calories Obesity classification: adult class 3 (BMI >= 40) Serious obesity comorbidity presence: with serious comorbidity Body mass index: BMI 40.0-44.9 Qualified Code(s): E66.01 - Morbid (severe) obesity due to excess calories; Z68.41 - Body mass index [BMI]40.0-44.9, adult Additional A&P Information Chronic back pain Full code DVT prophylaxis with Lovenox Attestations Medical Necessity Statement*: Needs continued hospitalization for antiviral, dexamethasone and close monitoring secondary to Covid 19 pneumonia. Coding Level of Care Code Acute Lockstitch Collar Setter for g Fwd Diagnoses Pneumonia due to COVID-19 virus U07.1; J12.89 COVID-19 U07.1 Hypertension I10 Hypertension type: essential hypertension Anxiety F41.9 Hypokalemia E87.6 Neutropenia D70.9 Neutropenia type: unspecified Obesity E66.01; Z68.41 Obesity type: due to excess calories Obesity classification: adult class 3 (BMI >= 40) Serious obesity comorbidity presence: with serious comorbidity Body mass index: BMI 40.0-44.9
--- NOTE | 2020-01-26 18:45 | PC.NURSE ---
Received report on patient from Ngoc BROOKS. Assumed care at this time.
[2020-01-26] MEDS: ALPRAZolam 0.25 mg Tablet 0.5 MG PO (22:57)
[2020-01-27] VITALS (11 sets, daily range): BP systolic 124; BP diastolic 62; PULSE 58–77; RESP 16–24; TEMP 36.7–36.9; O2SAT 89–95
[2020-01-27] MEDS: cefTRIAXone 1,000 MG in sodium chloride 0.9% (plus) 50 ML 100 MG IV (02:02)
[2020-01-27] MEDS: azithromycin 500 MG in sodium chloride 0.9% 250 ML 250 MG IV (02:04)
[2020-01-27 04:15] LABS: Hematocrit 42.1 % (37.0-47.0); Hemoglobin 13.8 g/dL (11.5-15.3); Lymphocytes # 0.8 10^3/uL (0.8-4.8); Lymphocytes % 16.1 %; Mean Corpuscular HGB Conc 32.8 g/dL (30.0-36.0); Mean Corpuscular Hemoglobin 30.3 pg (28.0-34.0); Mean Corpuscular Volume 92.5 fL (81-99); Mean Platelet Volume 9.5 fL (7.4-10.4); Monocytes # 0.4 10^3/uL (0.2-0.9); Neutrophils # 3.51 10^3/uL (1.8-7.7); Neutrophils % 75.5 %; Nucleated Red Blood Cells % 0 %; Platelet Count 423 10^3/cmm (130-400); Red Blood Count 4.55 10^6/uL (4.1-5.3); Red Cell Distribution Width 12.7 % (12.1-15.1); White Blood Count 4.7 10^3/uL (4.0-10.0)
[2020-01-27 04:49] LABS: Alanine Aminotransferase 20 U/L (0-33); Albumin Level 3.5 g/dL (3.5-5.2); Alkaline Phosphatase 90 IU/L (35-105); Anion Gap 15.3 (5-19); Aspartate Amino Transferase 44 U/L (0-32); Blood Urea Nitrogen 15 mg/dL (6-20); Calcium 8.7 mg/dL (8.5-10.5); Carbon Dioxide 27 mmol/L (22-29); Chloride 101 mmol/L (98-107); Globulin 3.6 g/dL (1.3-4.6); Glomerular Filtration Rate 126.7 mL/min (90-130); Glucose 112 mg/dL (65-115); Magnesium 2.1 mg/dL (1.7-2.3); Osmolality Calculated 292 mOsm/kg (285-295); Phosphorus 2.8 mg/dL (2.5-4.5); Potassium 3.3 mmol/L (3.5-5.1); Sodium 140 mmol/L (136-145); Total Bilirubin 0.3 mg/dL (0.15-1.2); Total Protein 7.1 g/dL (6.6-8.7)
[2020-01-27] MEDS: albuterol 8 gm MDI 1 PUFF INHALATION (08:10)
[2020-01-27] MEDS: ALPRAZolam 0.25 mg Tablet 0.5 MG PO (09:59)
[2020-01-27] MEDS: ascorbic acid 500 mg Tablet PO (09:59)
[2020-01-27] MEDS: zinc gluconate 50 mg Tablet PO (09:59)
[2020-01-27] MEDS: dexamethasone 4 mg/mL INJ 6 MG IVP (10:00)
[2020-01-27] MEDS: potassium chloride ER 10 mEq Tablet 40 MEQ PO (10:00)
[2020-01-27] MEDS: HYDROcodone-acetaminophen 10-325 mg Tablet 1 TAB PO (10:00)
[2020-01-27] MEDS: metoprolol tartrate 50 mg Tablet PO (10:00)
[2020-01-27] MEDS: duloxetine 60 mg Capsule 120 MG PO (10:01)
--- NOTE | 2020-01-27 10:49 | PC.NURSE ---
Patient remains stable. Vitals within normal limits. Assessment completed. Patient alert and oriented and MD Cruz preparing patient for discharge. Per RT will not need home 02. Preparing discharge paperwork.
--- NOTE | 2020-01-27 10:52 | P.DS_ITS ---
Discharge Providers Date of Admission: 01/24/20 00:03 Date of Discharge: January 27, 2020 Attending Provider at Admission: Trevor Albarran MD Attending Provider at Discharge: Patrick Cruz MD Primary Care Provider: Francisca Rivera DO Diagnoses at Discharge Discharge Diagnosis (1) Pneumonia due to COVID-19 virus: Status: Acute Problem details: Received remdesivir, dexamethasone (2) COVID-19: Status: Acute (3) Hypertension: Status: Chronic Qualifiers: Hypertension type: essential hypertension Qualified Code(s): I10 - Essential (primary) hypertension (4) Anxiety: Status: Acute (5) Hypokalemia: Status: Acute (6) Neutropenia: Status: Acute Qualifiers: Neutropenia type: unspecified Qualified Code(s): D70.9 - Neutropenia, unspecified (7) Obesity: Status: Chronic Qualifiers: Obesity type: due to excess calories Obesity classification: adult class 3 (BMI >= 40) Serious obesity comorbidity presence: with serious comorbidity Body mass index: BMI 40.0-44.9 Qualified Code(s): E66.01 - Morbid (severe) obesity due to excess calories; Z68.41 - Body mass index [BMI]40.0- 44.9, adult Reason for Visit Reason for Visit: hypoxia Hospital Course Hospital Course: Izzy is a 59-year-old white female that presented with shortness of breath on January 23. She had been diagnosed with COVID the previous week. Saturations were found to be low. She was placed on oxygen. She received remdesivir, dexamethasone, and anticoagulation for DVT prophylaxis. Throughout her hospital course she gradually improved. IV antibiotics were also continued while in the hospital for concern of possible bacterial pneumonia. By January 26 she was doing much better. She was on room air for over 24 hours. Home oxygen evaluation demonstrated no requirement for oxygen. She will discharge to complete a balance of dexamethasone, cefdinir. Secondary to history of venous stasis, markedly elevated d-dimer, and COVID she will take 10 more days of Eliquis, at dosing of 2.5 mg twice a day for DVT prophylaxis. Physical Exam Narrative: EXAM NARRATIVE: General exam is no apparent distress Cardiovascular regular rate and rhythm without murmur Lungs are clear to auscultation bilaterally without wheezing or crackles Abdomen is soft with positive bowel sounds Extremities no cyanosis clubbing or edema Discharge Data Data Completed and Pending: Completed Studies During Hospitalization Category Date Time Status CT angio chest PE protcl [id number] Urge nt Cat Scan 01/23/20 23:41 Completed XR chest 1V [place]ady [place] [id number] Stat Exams 01/23/20 22:18 Completed Pending at discharge Category Date Time Status Blood Culture Sta t Lab 01/24/20 13:19 Results Sputum Culture an d Gram Stain Routi ne Lab 01/24/20 11:48 Uncollected Labs from last 24 hours 01/27/20 01/27/20 03:30 03:30 WBC 4.7 RBC 4.55 Hgb 13.8 Hct 42.1 MCV 92.5 MCH 30.3 MCHC 32.8 RDW 12.7 Plt Count 423 H MPV 9.5 Neut % (Auto) 75.5 Lymph % (Auto) 16.1 [place] % (Auto) 8.0 Eos % (Auto) 0.0 Baso % (Auto) 0.0 Neut # (Auto) 3.51 Lymph # (Auto) 0.8 [place] # (Auto) 0.4 Eos # (Auto) 0.0 Baso # (Auto) 0.0 Nucleated RBC % (a uto) 0 Nucleated RBCs # 0.0 Sodium 140 Potassium 3.3 L Chloride 101 Carbon Dioxide 27 Anion Gap 15.3 BUN 15 Creatinine 0.5 GFR Calculation 126.7 Glucose 112 Calculated Osmolal ity 292 Calcium 8.7 Phosphorus 2.8 Magnesium 2.1 Total Bilirubin 0.3 AST 44 H ALT 20 Alkaline Phosphata se 90 Total Protein 7.1 Albumin 3.5 Globulin 3.6 Vitals: Last Vital Signs Temp 98.0 F 01/27/20 07:50 Pulse 63 01/27/20 08:11 Resp 17 01/27/20 08:11 BP 130/66 01/26/20 20:00 Pulse Ox 94 01/27/20 09:43 Discharge Plan Discharge Patient Disposition: Home Condition: Stable Prescriptions: New Eliquis 2.5 mg tablet 2.5 mg PO BID Qty: 20 RF: 0 dexamethasone 6 mg tablet 6 mg PO DAILY Qty: 3 RF: 0 cefdinir 300 mg capsule 300 mg PO BID 12 Days Qty: 24 RF: 0 Continued alprazolam 0.5 mg tablet 0.5 mg PO PRN PRN (Reason: Anxiety) RF: 0 hydrocodone-acetaminophen 10-325 mg tablet 1 tab PO PRN PRN (Reason: Back Pain) RF: 0 metoprolol tartrate 50 mg tablet 1 mg PO BID RF: 0 duloxetine 60 mg capsule,delayed release(DR/EC) 120 mg PO DAILY RF: 0 aspirin 325 mg Tablet 325 mg PO DAILY RF: 0 Discharge Orders: Discharge Order (Routine); Ordered 01/27/20 Ordered By: Patrick Cruz Referrals: Francisca Rivera DO [Primary Care Provider] - 1-3 days Discharge Diet: Cardiac Discharge Activity: Increase activity as tolerated Activity Restrictions/Additional Instructions: Follow-up with primary care provider in 2 to 3 days by telehealth Discharge Attestations Time Spent in Discharge Care*: greater than 30 min Quality Metrics Clinical Quality Measures During this hospital stay, did patient experience: None Coding Level of Care Code Acute It Technical Architect for g Fwd Diagnoses Pneumonia due to COVID-19 virus U07.1; J12.89 COVID-19 U07.1 Hypertension I10 Hypertension type: essential hypertension Anxiety F41.9 Hypokalemia E87.6 Neutropenia D70.9 Neutropenia type: unspecified Obesity E66.01; Z68.41 Obesity type: due to excess calories Obesity classification: adult class 3 (BMI >= 40) Serious obesity comorbidity presence: with serious comorbidity Body mass index: BMI 40.0-44.9
--- NOTE | 2020-01-29 16:43 | PC.SOCIAL ---
Spoke with patient post discharge. She did speak with PCP today and will remain off work one more week. She continues to be weak. Her appetite is improving. Ate a lil more today. She is drinking. We discussed medications and she is taking them. We discussed the reason for Eliquis and to monitor for any bleeding in stool, urine, and from nose. If this happens she should discuss with Dr Rivera. Recommend adding activity as tolerated. Recommend doing deep breathing exercises. Discussed good hand hygiene, sanitization in the home. Wearing mask when out in community, Flu vaccine. We also discussed Plasma donation information and she is interested therefore information will be sent out. No questions or concerns voiced. Overall patient is happy she is improving and thought the care she received was good.
== END 2020-01-27 11:58 | disposition home or self-care (01) | DRG 177 ==
LOC: ER 23:45 → ICU 01-24 00:04
PROVIDERS: Emergency Medicine; Family Medicine; Admitting Provider Family Medicine; PCP Family Medicine; Visit Provider Internal Medicine
DX: U07.1 COVID-19 (principal); J12.89 Other viral pneumonia; J96.21 Acute and chronic respiratory failure with hypoxia; Z68.41 Body mass index [BMI] 40.0-44.9, adult; I10 Essential (primary) hypertension; E66.01 Morbid (severe) obesity due to excess calories; G89.29 Other chronic pain; M54.9 Dorsalgia, unspecified; F41.9 Anxiety disorder, unspecified; E87.6 Hypokalemia; D70.9 Neutropenia, unspecified
CPT/HCPCS: 12345; 36415; 71045; 71275; 80053; 80061; 82550; 82728; 83036; 83605; 83615; 83735; 83880; 84100; 84145; 84443; 85025; 85378; 85384; 85610; 86140; 87040; 87641; 87804; 93005; 94640; 96372; 96375; 99283; J0456; J0696; J1100; J1650; J2405; J3535; J7050; Q9967